=== PATIENT | female | born 1960 | race American Indian/Alaskan Native ===

== ENCOUNTER 2018-05-20 16:41 | Inpatient (IN) | payer MEDICAID ==
[2018-05-20] MEDS ORDERED: ALUM-MAG HYDROX-SIMETH 200-200-20MG/5ML PO PRN (16:46)
[2018-05-20] MEDS ORDERED: ATIVAN IV PRN ×2 (16:46→17:36)
[2018-05-20] MEDS ORDERED: ZOFRAN ODT PO PRN (16:46)
[2018-05-20] MEDS ORDERED: HABITROL TD PRN (16:46)
[2018-05-20] MEDS ORDERED: TYLENOL PO PRN (16:46)
[2018-05-20] MEDS ORDERED: SENOKOT PO PRN (16:46)
[2018-05-20] MEDS ORDERED: DULCOLAX PR PRN (16:46)
[2018-05-20] MEDS ORDERED: ZOFRAN IV PRN (16:46)
[2018-05-20] MEDS ORDERED: MOTRIN PO PRN (16:46)
[2018-05-20] MEDS ORDERED: IMODIUM PO PRN (16:46)
[2018-05-20] MEDS ORDERED: BENTYL PO PRN (17:07)
[2018-05-20] MEDS ORDERED: VISTARIL PO PRN (17:07)
[2018-05-20] MEDS ORDERED: ROBAXIN PO PRN (17:07)
[2018-05-20] MEDS ORDERED: VITAMIN B-1 100 MG, FOLVITE 1 MG, INFUVITE 10 ML in LACTATED RINGERS 1,000 ML IV ONE (18:00)
[2018-05-20] MEDS: ATIVAN PO SCH ×2 (18:25→22:39)
[2018-05-20] MEDS: CATAPRES PO SCH ×2 (18:25→22:37)
[2018-05-20 18:39] LABS: Hematocrit 38.8 % (30.3-42.9); Hemoglobin 12.8 gm/dl (10.1-14.3); Mean Corpuscular HGB Conc 33 % (30-34); Mean Corpuscular Hemoglobin 31 pg (28-32); Mean Corpuscular Volume 95 fl (79-97); Platelet Count 270 K/mm3 (140-440); Red Blood Count 4.08 M/mm3 (3.65-5.03); Red Cell Distribution Width 14.8 % (13.2-15.2)
[2018-05-20 18:49] LABS: INR 0.97 (0.87-1.13)
[2018-05-20 19:30] LABS: Alanine Aminotransferase 9 units/L (7-56); Albumin 4.2 g/dL (3.9-5); BUN/Creatinine Ratio 16; Blood Urea Nitrogen 14 mg/dL (7-17); Hemolysis Index 4
--- NOTE | 2018-05-20 20:40 | History and Physical Report ---
History of Present Illness Date of examination: 05/20/18 Date of admission: 05/20/18 17:01 Chief complaint: Chief complaint: EtOH and cocaine withdrawal symptoms Wants help with her rehabilitation History of present illness: 57-year-old black female with history of hypertension and thyroid disease comes in for alcohol dependence cocaine dependence and withdrawal symptoms from the same for help with the rehabilitation. Patient wants to stop alcohol and cocaine and wants help regarding stopping the same. Patient has been nervous and tremulous and fidgety for the last 24 hours. Patient has been an alcohol from age 10. She was feeling appearance alcohol. Drinks 12 pack beer on a regular basis and off late has been drinking bourbon.. Patient also has cocaine about $60 worth every day. Smokes cocaine. Patient has nervousness and anxiety. Some tremors present. Some sweats present. No tactile disturbances auditory disturbances visual disturbances. No headache. Oriented and can do serial adhesions. Patient CIWA score is about 15. Past History Past Medical History: hypertension, hypothyroidism Past Surgical History: Other (breast surgery breast surgery for fibrocystic tissue removal. Also left shoulder surgery secondary to a fall.) Social history: single, smoking (smokes about half a pack a day), alcohol abuse (alcohol abuse on a regular basis-12 pack beer and bourbon), full code Family history: hypertension (siblings have hypertension) Medications and Allergies Allergies Allergy/AdvReac Type Severity Reaction Status Date / Time Penicillins AdvReac Unknown Verified 05/20/18 16:46 Sulfa (Sulfonamide AdvReac Unknown Unverified 05/20/18 16:43 Antibiotics) Active Meds: Active Medications Acetaminophen (Tylenol) 500 mg PO Q4H PRN PRN Reason: Temp > 100.4 Al Hydrox/Mg Hydrox/Simethicone (Alum-Mag Hydrox-Simeth [id number]/5ml) 30 ml PO Q6H PRN PRN Reason: Dyspepsia Bisacodyl (Dulcolax) 10 mg ME QDAY PRN PRN Reason: Bowel Movement Clonidine HCl (Catapres) 0.1 mg PO Q4H [facility] Last Admin: 05/20/18 18:25 Dose: 0.1 mg Dicyclomine HCl (Bentyl) 20 mg PO Q6H PRN PRN Reason: Abdominal Discomfort Folic Acid (Folvite) 1 mg PO QDAY [facility] Hydroxyzine Pamoate (Vistaril) 50 mg PO Q6H PRN PRN Reason: Anxiety Mild Sodium Chloride (Nacl 0.9% 1000 Ml) 1,000 mls @ 75 mls/hr IV DIRECT [facility] Thiamine HCl 100 mg/ Folic Acid 1 mg/ Multivitamins/Minerals 10 ml/ Lactated Ringer's 1,011.2 mls @ 150 mls/hr IV ONCE ONE Stop: 05/21/18 00:44 Last Admin: 05/20/18 18:17 Dose: 150 mls/hr Ibuprofen (Motrin) 600 mg PO Q8H PRN PRN Reason: Pain, Mild (1-3) Loperamide HCl (Imodium) 2 mg PO Q8H PRN PRN Reason: Diarrhea Lorazepam (Ativan) 2 mg IV PRN PRN PRN Reason: Seizures Lorazepam (Ativan) 1 mg PO Q4H [facility] Stop: 05/21/18 14:01 Last Admin: 05/20/18 18:25 Dose: 1 mg Lorazepam (Ativan) 1 mg PO Q6HR [facility] Stop: 05/22/18 06:01 Lorazepam (Ativan) 1 mg PO Q8HR [facility] Stop: 05/23/18 06:01 Lorazepam (Ativan) 1 mg IV Q4H PRN PRN Reason: Anxiety Severe Methocarbamol (Robaxin) 750 mg PO Q6H PRN PRN Reason: Muscle Ache Multivitamins (Theragran Tab) 1 each PO QDAY [facility] Nicotine (Habitrol) 21 mg TD QDAY PRN PRN Reason: Smoking Cessation Ondansetron HCl (Zofran) 4 mg IV Q6H PRN PRN Reason: Moderat/Severe Nausea/Vomiting Ondansetron HCl (Zofran Odt) 4 mg PO Q6H PRN PRN Reason: Mild / Nausea And Vomiting Senna (Senokot) 17.2 mg PO QHS PRN PRN Reason: Constipation Thiamine HCl (Vitamin B-1) 100 mg PO QDAY [facility] Trazodone HCl (Desyrel) 50 mg PO QHS [facility] Review of Systems All systems: negative Constitutional: no weight loss, no weight gain, no fever, no chills Ears, nose, mouth and throat: no dysphagia, no hoarseness, no sore throat, no swelling in mouth, no swelling in throat, no odynophagia Cardiovascular: no chest pain, no orthopnea, no palpitations, no rapid/ irregular heart beat, no edema, no syncope, no lightheadedness, no shortness of breath, no dyspnea on exertion Respiratory: no cough, no cough with sputum, no excessive sputum, no hemoptysis , no shortness of breath, no dyspnea on exertion Gastrointestinal: no abdominal pain, no nausea, no vomiting, no diarrhea, no constipation, no change in bowel habits, no hematemesis, no coffee ground emesis Genitourinary Female: no dysuria, no urinary frequency, no urgency Integumentary: no rash, no pruritis, no redness, no sores, no wounds, no jaundice, no boils, no blisters Neurological: no seizures, no syncope Psychiatric: anxiety, sleep disturbances, insomnia, anxiety attacks, difficulties concentrating, irritability, no hypersomnia, no change in appetite , no change in libido, no suicidal ideation, no disorientation, no hallucinations, no paranoia, no depression, no hopelessness, no anhedonia Endocrine: no cold intolerance, no heat intolerance, no polyphagia, no excessive thirst, no polydipsia, no polyuria Hematologic/Lymphatic: no easy bruising, no easy bleeding Allergic/Immunologic: no urticaria, no allergic rhinitis, no wheezing Exam - Constitutional Vitals: Temp Pulse Resp BP Pulse Ox 98.5 F 76 18 153/79 98 05/20/18 19:53 05/20/18 19:53 05/20/18 19:53 05/20/18 19:53 05/20/18 19:53 General appearance: Present: no acute distress, well-nourished - EENT Eyes: Present: PERRL ENT: hearing intact, clear oral mucosa - Neck Neck: Present: supple, normal ROM - Respiratory Respiratory effort: normal Respiratory: bilateral: CTA - Cardiovascular Heart rate: 76 Rhythm: regular Heart Sounds: Present: S1 & S2. Absent: rub, click - Extremities Extremities: no ischemia, pulses intact, pulses symmetrical, No edema Peripheral Pulses: within normal limits - Abdominal General gastrointestinal: Present: soft, non-tender, non-distended, normal bowel sounds Female genitourinary: Present: normal - Integumentary Integumentary: Present: clear, warm, dry - Musculoskeletal Musculoskeletal: gait normal, strength equal bilaterally - Psychiatric Psychiatric: appropriate mood/affect, intact judgment & insight - Neurologic Neurologic: CNII-XII intact, moves all extremities - Allied Health Allied health notes reviewed: nursing, case management Results - Labs CBC & Chem 7: 05/20/18 18:08 05/20/18 18:08 Labs: Laboratory Last Values WBC 6.7 K/mm3 (4.5-11.0) 05/20/18 18:08 RBC 4.08 M/mm3 (3.65-5.03) 05/20/18 18:08 Hgb 12.8 gm/dl (10.1-14.3) 05/20/18 18:08 Hct 38.8 % (30.3-42.9) 05/20/18 18:08 MCV 95 fl (79-97) 05/20/18 18:08 MCH 31 pg (28-32) 05/20/18 18:08 MCHC 33 % (30-34) 05/20/18 18:08 RDW 14.8 % (13.2-15.2) 05/20/18 18:08 Plt Count 270 K/mm3 (140-440) 05/20/18 18:08 PT 13.4 Sec. (12.2-14.9) 05/20/18 18:08 INR 0.97 (0.87-1.13) 05/20/18 18:08 Sodium 144 mmol/L (137-145) 05/20/18 18:08 Potassium 4.1 mmol/L (3.6-5.0) 05/20/18 18:08 Chloride 106.9 mmol/L (98-107) 05/20/18 18:08 Carbon Dioxide 26 mmol/L (22-30) 05/20/18 18:08 Anion Gap 15 mmol/L 05/20/18 18:08 BUN 14 mg/dL (7-17) 05/20/18 18:08 Creatinine 0.9 mg/dL (0.7-1.2) 05/20/18 18:08 Estimated GFR > 60 ml/min 05/20/18 18:08 BUN/Creatinine Ratio 16 % 05/20/18 18:08 Glucose 86 mg/dL (65-100) 05/20/18 18:08 Calcium 9.0 mg/dL (8.4-10.2) 05/20/18 18:08 Total Bilirubin < 0.20 mg/dL (0.1-1.2) 05/20/18 18:08 AST 15 units/L (5-40) 05/20/18 18:08 ALT 9 units/L (7-56) 05/20/18 18:08 Alkaline Phosphatase 100 units/L (35-129) 05/20/18 18:08 Total Protein 7.6 g/dL (6.3-8.2) 05/20/18 18:08 Albumin 4.2 g/dL (3.9-5) 05/20/18 18:08 Albumin/Globulin Ratio 1.2 % 05/20/18 18:08 Amylase 75 units/L (27-131) 05/20/18 18:08 Lipase 28 units/L (13-60) 05/20/18 18:08 Plasma/Serum Alcohol < 0.01 % (0-0.07) 05/20/18 18:08 Short CBC 05/20/18 Range/Units 18:08 WBC 6.7 (4.5-11.0) K/mm3 Hgb 12.8 (10.1-14.3) gm/dl Hct 38.8 (30.3-42.9) % Plt Count 270 (140-440) K/mm3 BMP 05/20/18 18:08 Sodium 144 Potassium 4.1 Chloride 106.9 Carbon Dioxide 26 BUN 14 Creatinine 0.9 Glucose 86 Calcium 9.0 Liver Function 05/20/18 Range/Units 18:08 Total Bilirubin < 0.20 (0.1-1.2) mg/dL AST 15 (5-40) units/L ALT 9 (7-56) units/L Alkaline Phosphatase 100 (35-129) units/L Albumin 4.2 (3.9-5) g/dL Assessment and Plan Advance Directives: Yes (full code) VTE prophylaxis?: Chemical Plan of care discussed with patient/family: Yes - Patient Problems (1) EtOH dependence Current Visit: Yes Status: Chronic Qualifiers: Substance use status: in withdrawal Plan to address problem: Patient in withdrawal Patient started on multivitamin and thiamine folic acid trazodone and Ativan. Patient also started on metformin back dicyclomine 1 tablet orally every 6 hours when necessary and lorazepam 1 mg IV push every 4 hours when necessary for severe anxiety in which the patient has not responded to Librium R lorazepam Taper. On day one lorazepam 1 mg every 4 hours for 6 doses day 2 lorazepam 1 mg orally every 6 hours for 4 doses and on day 3 lorazepam 1 mg every 8 hours for 3 doses. Also patient on remote telemetry and to give be given clonidine and Robaxin Ropinirole and hydroxyzine when necessary Patient on CIWA protocol (2) Cocaine dependence Current Visit: Yes Status: Acute Qualifiers: Substance use status: in withdrawal Qualified Code(s): F14.23 - Cocaine dependence with withdrawal Plan to address problem: Drug screen was negative Patient initiated on Ativan and banana bag as well as alcohol dependence which is cross cover cocaine dependence also Continue CIWA protocol Patient may need detoxification after these 3 days 3 days for a few more days in a rehabilitation center (3) Hypertension Current Visit: Yes Status: Chronic Qualifiers: Hypertension type: essential hypertension Qualified Code(s): I10 - Essential (primary) hypertension Plan to address problem: Patient initiated on losartan (4) Hypothyroidism (acquired) Current Visit: Yes Status: Chronic Plan to address problem: Resume levothyroxine Check TSH (5) Depression Current Visit: Yes Status: Chronic Plan to address problem: Continue antidepressants when her list is available (6) Schizophrenia Current Visit: Yes Status: Chronic Qualifiers: Schizophrenia type: unspecified Qualified Code(s): F20.9 - Schizophrenia, unspecified Plan to address problem: Resume her home medications were Y level Medications not reconciled (7) DVT prophylaxis Current Visit: Yes Status: Acute Plan to address problem: lovenox 40 mg sq qd
[2018-05-20] MEDS ORDERED: LEVOTHYROXINE 100 MCG PO SCH (21:15)
[2018-05-20] MEDS ORDERED: NON-FORMULARY (Citalopram Hydrobromide [Celexa] 40 MG) PO SCH (21:15)
[2018-05-20] MEDS ORDERED: NON-FORMULARY (Lisinopril 10 MG) PO SCH (21:15)
[2018-05-20] MEDS ORDERED: NON-FORMULARY (Buspar 10 MG) PO SCH (22:00)
[2018-05-20] MEDS: DESYREL PO SCH (22:37)
[2018-05-20] MEDS: LOVENOX SUB-Q SCH (22:38)
[2018-05-20] MEDS: HABITROL TD SCH (22:38)
[2018-05-20] MEDS: BUSPAR PO SCH (23:44)
[2018-05-21] MEDS: ATIVAN PO SCH ×6 (03:34→17:44)
[2018-05-21] MEDS: CATAPRES PO SCH ×6 (03:40→22:45)
[2018-05-21 06:06] LABS: Basophils % (Auto) 0.5 % (0.0-1.8); Eosinophils # (Auto) 0.2 K/mm3 (0.0-0.4); Eosinophils % (Auto) 3.6 % (0.0-4.3); Hematocrit 35.5 % (30.3-42.9); Hemoglobin 12.1 gm/dl (10.1-14.3); Lymphocytes # (Auto) 2.9 K/mm3 (1.2-5.4); Lymphocytes % (Auto) 51.8 % (13.4-35.0); Mean Corpuscular HGB Conc 34 % (30-34); Mean Corpuscular Hemoglobin 32 pg (28-32); Mean Corpuscular Volume 94 fl (79-97); Monocytes # (Auto) 0.4 K/mm3 (0.0-0.8); Platelet Count 238 K/mm3 (140-440); Red Blood Count 3.77 M/mm3 (3.65-5.03); Red Cell Distribution Width 14.4 % (13.2-15.2)
[2018-05-21 06:23] LABS: Alanine Aminotransferase 6 units/L (7-56); BUN/Creatinine Ratio 14; Blood Urea Nitrogen 13 mg/dL (7-17); Calcium 7.8 mg/dL (8.4-10.2); Hemolysis Index 1
[2018-05-21] MEDS: NACL 0.9% 1000 ML 1,000 ML IV SCH ×4 (06:26→19:54)
[2018-05-21] MEDS: SYNTHROID PO SCH (06:26)
[2018-05-21 07:11] LABS: Amphetamine Screen,Urine PRESUMPTIVE NEGATIVE; Benzodiazepines Screen,Urine PRESUMPTIVE NEGATIVE; Cannabinoid Screen,Urine PRESUMPTIVE NEGATIVE; Methadone Screen,Urine PRESUMPTIVE NEGATIVE; Opiate Screen,Urine PRESUMPTIVE NEGATIVE
[2018-05-21 07:17] LABS: Bilirubin,Urine NEG (Negative); Blood,Urine NEG (Negative); Color,Urine Yellow (Yellow); Mucus,Urine FEW /HPF; Protein,Urine <15 mg/dL mg/dL (Negative)
[2018-05-21 07:28] LABS: Cocaine Screen,Urine PRESUMPTIVE POSITIVE
[2018-05-21] MEDS: THERAGRAN Tab PO SCH (09:54)
[2018-05-21] MEDS: VITAMIN B-1 PO SCH (09:54)
[2018-05-21] MEDS: celeXA PO SCH (09:54)
[2018-05-21] MEDS: ZESTRIL PO SCH (09:54)
[2018-05-21] MEDS: FOLVITE PO SCH (09:55)
[2018-05-21] MEDS: BUSPAR PO SCH ×2 (10:08→22:45)
--- NOTE | 2018-05-21 11:01 | Progress Note ---
Assessment and Plan - Patient Problems (1) EtOH dependence Current Visit: Yes Status: Chronic Qualifiers: Substance use status: in withdrawal Plan to address problem: Patient in withdrawal Patient started on multivitamin and thiamine folic acid trazodone and Ativan. Patient also started on metformin back dicyclomine 1 tablet orally every 6 hours when necessary and lorazepam 1 mg IV push every 4 hours when necessary for severe anxiety in which the patient has not responded to Librium R lorazepam Taper. On day one lorazepam 1 mg every 4 hours for 6 doses day 2 lorazepam 1 mg orally every 6 hours for 4 doses and on day 3 lorazepam 1 mg every 8 hours for 3 doses. Also patient on remote telemetry and to give be given clonidine and Robaxin Ropinirole and hydroxyzine when necessary Patient on CIWA protocol (2) Cocaine dependence Current Visit: Yes Status: Acute Qualifiers: Substance use status: in withdrawal Qualified Code(s): F14.23 - Cocaine dependence with withdrawal Plan to address problem: Drug screen was negative Patient initiated on Ativan and banana bag as well as alcohol dependence which is cross cover cocaine dependence also Continue CIWA protocol Patient may need detoxification after these 3 days 3 days for a few more days in a rehabilitation center (3) Hypertension Current Visit: Yes Status: Chronic Qualifiers: Hypertension type: essential hypertension Qualified Code(s): I10 - Essential (primary) hypertension Plan to address problem: Patient initiated on losartan (4) Hypothyroidism (acquired) Current Visit: Yes Status: Chronic Plan to address problem: Resume levothyroxine Check TSH (5) Depression Current Visit: Yes Status: Chronic Plan to address problem: Continue antidepressants when her list is available (6) Schizophrenia Current Visit: Yes Status: Chronic Qualifiers: Schizophrenia type: unspecified Qualified Code(s): F20.9 - Schizophrenia, unspecified Plan to address problem: Resume her home medications were Y level Medications not reconciled (7) DVT prophylaxis Current Visit: Yes Status: Acute Plan to address problem: lovenox 40 mg sq qd Subjective Date of service: 05/21/18 Principal diagnosis: Etoh dependence and withdrawal,Cocaine dependence Interval history: Doing better Objective - Constitutional Vitals: Vital Signs - 12hr 05/21/18 05/21/18 05/21/18 00:15 03:15 08:18 Temperature 98.4 F 97.8 F 98.2 F Pulse Rate 67 71 76 Respiratory 16 20 18 Rate Blood Pressure 104/39 105/64 140/67 O2 Sat by Pulse 97 97 96 Oximetry General appearance: Present: no acute distress, well-nourished - EENT Eyes: PERRL, EOM intact ENT: hearing intact, clear oral mucosa Ears: bilateral: normal - Neck Neck: supple, normal ROM - Respiratory Respiratory effort: normal Respiratory: bilateral: CTA - Breasts Breasts: normal - Cardiovascular Heart rate: 78 Rhythm: regular Heart Sounds: Present: S1 & S2. Absent: gallop, rub Extremities: no ischemia, pulses intact, No edema, normal color, Full ROM - Gastrointestinal General gastrointestinal: Present: soft, non-tender, non-distended, normal bowel sounds - Genitourinary Female genitourinary: normal - Integumentary Integumentary: clear, warm, dry - Musculoskeletal Musculoskeletal: 1, strength equal bilaterally - Neurologic Neurologic: moves all extremities - Psychiatric Psychiatric: memory intact, appropriate mood/affect, intact judgment & insight - Labs CBC & Chem 7: 05/21/18 05:40 05/21/18 05:40 Labs: Abnormal lab results 05/21/18 05/21/18 Range/Units 05:40 05:40 Lymph % (Auto) 51.8 H (13.4-35.0) % [place] % (Auto) 8.0 H (0.0-7.3) % Seg Neutrophils % 36.1 L (40.0-70.0) % Sodium 135 L D (137-145) mmol/L Glucose 129 H (65-100) mg/dL Calcium 7.8 L (8.4-10.2) mg/dL ALT 6 L (7-56) units/L Total Protein 6.0 L D (6.3-8.2) g/dL Albumin 3.0 L (3.9-5) g/dL
[2018-05-21] MEDS: HABITROL TD SCH (12:04)
[2018-05-21] MEDS: DESYREL PO SCH (22:45)
[2018-05-21] MEDS: LOVENOX SUB-Q SCH (22:45)
[2018-05-22] MEDS: ATIVAN PO SCH ×4 (00:11→22:33)
[2018-05-22] MEDS: CATAPRES PO SCH ×6 (02:04→22:37)
[2018-05-22] MEDS: SYNTHROID PO SCH (06:02)
[2018-05-22] MEDS: FOLVITE PO SCH (08:59)
[2018-05-22] MEDS: THERAGRAN Tab PO SCH (08:59)
[2018-05-22] MEDS: celeXA PO SCH (08:59)
[2018-05-22] MEDS: BUSPAR PO SCH ×2 (08:59→22:33)
[2018-05-22] MEDS: ZESTRIL PO SCH (09:00)
[2018-05-22] MEDS: VITAMIN B-1 PO SCH (09:00)
[2018-05-22] MEDS: HABITROL TD SCH (09:00)
[2018-05-22] MEDS: NACL 0.9% 1000 ML 1,000 ML IV SCH ×2 (09:04→23:52)
--- NOTE | 2018-05-22 14:10 | Progress Note ---
Assessment and Plan Assessment and plan: Alcohol withdrawal syndrome. Continue CIWA protocol with Ativan. Thiamine folic acid, Cocaine withdrawal. On Robaxin Hypertension. BP stable Full code status. History Interval history: Gen weakness abdominal discomfort Hospitalist Physical - Physical exam Narrative exam: GEN:Not in acute distress, lying in bed, Obese HEENT: Normocephalic, atraumatic, Neck: supple, No JVD Lungs: Clear to auscultation bilaterally, no crackles Heart:S1 and S2 reg, no murmurs, rubs or gallop Abd:soft, non tender, non distended, Normal bowel sounds Ext: No edema, clubbing or cyanosis Neuro: Awake, alert, oriented x 3, mild tremors - Constitutional Vitals: Temp Pulse Resp BP Pulse Ox 97.7 F 80 18 121/64 98 05/22/18 12:33 05/22/18 13:47 05/22/18 12:33 05/22/18 13:47 05/22/18 12:16 General appearance: Present: no acute distress, well-nourished Results - Labs CBC & Chem 7: 05/21/18 05:40 05/21/18 05:40 Labs: Laboratory Last Values WBC 5.6 K/mm3 (4.5-11.0) 05/21/18 05:40 RBC 3.77 M/mm3 (3.65-5.03) 05/21/18 05:40 Hgb 12.1 gm/dl (10.1-14.3) 05/21/18 05:40 Hct 35.5 % (30.3-42.9) 05/21/18 05:40 MCV 94 fl (79-97) 05/21/18 05:40 MCH 32 pg (28-32) 05/21/18 05:40 MCHC 34 % (30-34) 05/21/18 05:40 RDW 14.4 % (13.2-15.2) 05/21/18 05:40 Plt Count 238 K/mm3 (140-440) 05/21/18 05:40 Lymph % (Auto) 51.8 % (13.4-35.0) H 05/21/18 05:40 [place] % (Auto) 8.0 % (0.0-7.3) H 05/21/18 05:40 Eos % (Auto) 3.6 % (0.0-4.3) 05/21/18 05:40 Baso % (Auto) 0.5 % (0.0-1.8) 05/21/18 05:40 Lymph # 2.9 K/mm3 (1.2-5.4) 05/21/18 05:40 [place] # 0.4 K/mm3 (0.0-0.8) 05/21/18 05:40 Eos # 0.2 K/mm3 (0.0-0.4) 05/21/18 05:40 Baso # 0.0 K/mm3 (0.0-0.1) 05/21/18 05:40 Seg Neutrophils % 36.1 % (40.0-70.0) L 05/21/18 05:40 Seg Neutrophils # 2.0 K/mm3 (1.8-7.7) 05/21/18 05:40 PT 13.4 Sec. (12.2-14.9) 05/20/18 18:08 INR 0.97 (0.87-1.13) 05/20/18 18:08 Sodium 135 mmol/L (137-145) L D 05/21/18 05:40 Potassium 3.6 mmol/L (3.6-5.0) 05/21/18 05:40 Chloride 101.1 mmol/L (98-107) 05/21/18 05:40 Carbon Dioxide 25 mmol/L (22-30) 05/21/18 05:40 Anion Gap 13 mmol/L 05/21/18 05:40 BUN 13 mg/dL (7-17) 05/21/18 05:40 Creatinine 0.9 mg/dL (0.7-1.2) 05/21/18 05:40 Estimated GFR > 60 ml/min 05/21/18 05:40 BUN/Creatinine Ratio 14 % 05/21/18 05:40 Glucose 129 mg/dL (65-100) H 05/21/18 05:40 Calcium 7.8 mg/dL (8.4-10.2) L 05/21/18 05:40 Total Bilirubin < 0.20 mg/dL (0.1-1.2) 05/21/18 05:40 AST 12 units/L (5-40) 05/21/18 05:40 ALT 6 units/L (7-56) L 05/21/18 05:40 Alkaline Phosphatase 85 units/L (35-129) 05/21/18 05:40 Total Protein 6.0 g/dL (6.3-8.2) L D 05/21/18 05:40 Albumin 3.0 g/dL (3.9-5) L 05/21/18 05:40 Albumin/Globulin Ratio 1.0 % 05/21/18 05:40 Amylase 75 units/L (27-131) 05/20/18 18:08 Lipase 28 units/L (13-60) 05/20/18 18:08 TSH 2.450 mlU/mL (0.270-4.200) 05/20/18 18:08 Urine Color Yellow (Yellow) 05/20/18 05:00 Urine Turbidity Slightly-cloudy (Clear) 05/20/18 05:00 Urine pH 5.0 (5.0-7.0) 05/20/18 05:00 Ur Specific [place] 1.018 (1.003-1.030) 05/20/18 05:00 Urine Protein <15 mg/dl mg/dL (Negative) 05/20/18 05:00 Urine Glucose (UA) Neg mg/dL (Negative) 05/20/18 05:00 Urine Ketones Neg mg/dL (Negative) 05/20/18 05:00 Urine Blood Neg (Negative) 05/20/18 05:00 Urine Nitrite Neg (Negative) 05/20/18 05:00 Urine Bilirubin Neg (Negative) 05/20/18 05:00 Urine Urobilinogen 2.0 mg/dL (<2.0) 05/20/18 05:00 Ur Leukocyte Esterase Tr (Negative) 05/20/18 05:00 Urine WBC (Auto) 2.0 /HPF (0.0-6.0) 05/20/18 05:00 Urine RBC (Auto) 1.0 /HPF (0.0-6.0) 05/20/18 05:00 U Epithel Cells (Auto) 3.0 /HPF (0-13.0) 05/20/18 05:00 Urine Mucus Few /HPF 05/20/18 05:00 Urine Opiates Screen Presumptive negative 05/20/18 05:00 Urine Methadone Screen Presumptive negative 05/20/18 05:00 Ur Barbiturates Screen Presumptive negative 05/20/18 05:00 Ur Phencyclidine Scrn Presumptive negative 05/20/18 05:00 Ur Amphetamines Screen Presumptive negative 05/20/18 05:00 U Benzodiazepines Scrn Presumptive negative 05/20/18 05:00 Urine Cocaine Screen Presumptive positive 05/20/18 05:00 U Marijuana (THC) Screen Presumptive negative 05/20/18 05:00 Drugs of Abuse Note Disclamer 05/20/18 05:00 Plasma/Serum Alcohol < 0.01 % (0-0.07) 05/20/18 18:08
[2018-05-22] MEDS: DESYREL PO SCH (22:33)
[2018-05-22] MEDS: LOVENOX SUB-Q SCH (22:33)
[2018-05-23] MEDS: CATAPRES PO SCH ×4 (02:15→09:01)
[2018-05-23] MEDS: SYNTHROID PO SCH (06:22)
[2018-05-23] MEDS: NACL 0.9% 1000 ML 1,000 ML IV SCH (06:22)
[2018-05-23] MEDS: ATIVAN PO SCH (06:23)
[2018-05-23 08:09] VITALS: BP 157/89
[2018-05-23] MEDS: VITAMIN B-1 PO SCH (09:00)
[2018-05-23] MEDS: celeXA PO SCH (09:00)
[2018-05-23] MEDS: BUSPAR PO SCH (09:01)
[2018-05-23] MEDS: HABITROL TD SCH (09:01)
[2018-05-23] MEDS: THERAGRAN Tab PO SCH (09:01)
[2018-05-23] MEDS: FOLVITE PO SCH (09:02)
[2018-05-23] MEDS: ZESTRIL PO SCH (09:02)
[2018-05-23] MEDS ORDERED: METAMUCIL PO SCH (10:00)
--- NOTE | 2018-05-23 12:19 | Discharge Summary ---
Providers - Providers Date of Admission: 05/20/18 17:01 Date of discharge: 05/23/18 Attending physician: SUZAN KHAN Primary care physician: JEANNINE EVANS MD Hospitalization Condition: Fair Disposition: DC-01 TO HOME OR SELFCARE Core Measure Documentation - Palliative Care Palliative Care/ Comfort Measures: Not Applicable - Core Measures Any of the following diagnoses?: none Exam - Constitutional Vitals: Temp Pulse Resp BP Pulse Ox 97.9 F 77 18 157/89 100 05/23/18 08:09 05/23/18 10:00 05/23/18 10:00 05/23/18 09:02 05/23/18 10:00 Plan Activity: advance as tolerated Diet: low fat, low cholesterol, low salt Additional Instructions: 1.Follow up with PCP in 1 week. 2.Follow up at inpatient Center today Follow up with: JEANNINE EVANS MD [Primary Care Provider] - 7 Days Prescriptions: Folic Acid [Folvite] 1 mg PO QDAY #30 tablet Thiamine [Vitamin B-1] 100 mg PO QDAY #30 tablet
== END 2018-05-23 12:53 | disposition home or self-care (01) | DRG 898 ==
LOC: 2B-ACE 16:41 → UNDOADMIN 16:41 → MSU 17:01
PROVIDERS: ADMIT Internal Medicine; ATTEND Internal Medicine
DX: F10.239 Alcohol dependence with withdrawal, unspecified (principal); F14.23 Cocaine dependence with withdrawal; I10 Essential (primary) hypertension; F41.9 Anxiety disorder, unspecified; E03.9 Hypothyroidism, unspecified; F17.210 Nicotine dependence, cigarettes, uncomplicated; F32.9 Major depressive disorder, single episode, unspecified; F20.9 Schizophrenia, unspecified; Z82.49 Family history of ischemic heart disease and other diseases of the circulatory system; Z88.0 Allergy status to penicillin; Z88.2 Allergy status to sulfonamides
CPT/HCPCS: 36415; 80053; 80307; 80320; 81001; 82150; 83690; 84443; 85025; 85027; 85610; 93005; 93010; G0480; J1650; J3411; J7030; J7120